=== PATIENT | female | born 1990 | race Two or more races ===

== ENCOUNTER 2016-09-29 11:33 | Emergency (ER) | payer OTHER ==
[~2016-09-29] VITALS: Ht 170.2 cm; Wt 247.0 kg
[2016-09-29 11:39] VITALS: BP 173/97
== END 2016-09-29 13:03 | disposition home or self-care (01) ==
LOC: ED 12:40
DX: B34.9 Viral infection, unspecified (principal); E66.01 Morbid (severe) obesity due to excess calories; Z68.45 Body mass index [BMI] 70 or greater, adult
CPT/HCPCS: 71020; 99284